=== PATIENT | male | born 1985 | race Caucasian/White ===

== ENCOUNTER 2022-01-21 12:45 | Emergency (ER) | payer BC ==
[2022-01-21] MEDS ORDERED: Ketorolac Tromethamine 30 MG/ML VIAL ONE (14:08)
== END 2022-01-21 17:36 | disposition home or self-care (01) ==
LOC: ERS 12:45
DX: M25.521 Pain in right elbow (principal); Z87.891 Personal history of nicotine dependence; W18.30XA Fall on same level, unspecified, initial encounter
CPT/HCPCS: 96372; J1885